=== PATIENT | male | born 1975 | race African-American/Black ===

== ENCOUNTER 2017-03-03 07:31 | Emergency (ER) | payer OTHER ==
[2017-03-03] MEDS: ACETAMINOPHEN 325 MG TAB PO (07:45)
[2017-03-03] MEDS: OSELTAMIVIR PHOSPHATE 75 MG CAP (TAMIFLU) PO (08:30)
== END 2017-03-03 08:40 | disposition home or self-care (01) ==
LOC: M ED 07:31
DX: J10.1 Influenza due to other identified influenza virus with other respiratory manifestations (principal)
CPT/HCPCS: 71046